=== PATIENT | female | born 1985 | race African-American/Black ===

== ENCOUNTER 2017-10-03 21:02 | Emergency (ER) | payer OTHER ==
[~2017-10-03] VITALS: Ht 160 cm; Wt 69.0 kg
[~2017-10-03 21:02] MED LIST: AMOXICILLIN/CL875 MG OR; DEPO-MEDROL80 MG/ML IM; DIFLUCAN150 MG OR; MOTRIN800 MG PO; ROCEPHIN 1 GM1 GM IJ
[2017-10-03] MEDS ORDERED: ULTRAM50 M1 PO (21:50)
[2017-10-03 22:05] VITALS: BP 121/77
== END 2017-10-03 22:08 | disposition home or self-care (01) | DRG 605 ==
LOC: ED 21:02
DX: S90.122A Contusion of left lesser toe(s) without damage to nail, initial encounter (principal); W22.8XXA Striking against or struck by other objects, initial encounter; Y92.009 Unspecified place in unspecified non-institutional (private) residence as the place of occurrence of the external cause